=== PATIENT | male | born 1970 | race Caucasian/White ===

== ENCOUNTER 2019-09-05 05:49 | Day surgery (SDC) | payer BC, OTHER ==
[2019-09-02 15:25] VITALS: BMI 26.5
[2019-09-05] MEDS ORDERED: oxyCODONE HCL 10 MG SUSTAINED ACTING TABLET PO STA (06:50)
[2019-09-05] MEDS ORDERED: oxyCODONE HCL 10 MG SUSTAINED ACTING TABLET ONE (06:58)
[2019-09-05] MEDS ORDERED: LIDOCAINE 1%/EPI 1:100000 (20 ML MULTI DOSE VIAL) ONE (07:24)
[2019-09-05] MEDS ORDERED: GUM MASTIC/STORAX/MSAL/ALCOHOL 1 DRP DROPSBTL MC ONE (07:24)
[2019-09-05] MEDS ORDERED: methylPREDNISolone ACET (DEPO) 40 MG/1 ML VIAL ONE (07:24)
--- NOTE | 2019-09-05 07:31 | HP ---
History & Physical Update - History History: No Change - Physical Physical: No Change - Assessment Assessment: No Change - Plan Plan: No Change
[2019-09-05] MEDS ORDERED: DEXAMETHASONE SOD PHOSPHATE/PF 10 MG/ML SDV ONE (07:56)
[2019-09-05] MEDS ORDERED: MIDAZOLAM HCL 2 MG/2 ML SINGLE DOSE VIAL ONE ×2 (07:57→09:18)
[2019-09-05] MEDS ORDERED: BUPIVACAINE HCL/PF 0.5% (5 MG/ML) 30 ML VIAL IJ ONE (07:57)
[2019-09-05] MEDS ORDERED: PROPOFOL 1,000,000 MCG/100 ML VIAL ONE (08:42)
[2019-09-05] MEDS ORDERED: PROPOFOL 20 ML ONE (09:00)
[2019-09-05] MEDS ORDERED: SUCCINYLCHOLINE CHLORIDE 200 MG/10 ML SYRINGE ONE (09:00)
[2019-09-05] MEDS ORDERED: LIDOCAINE 1%/EPI 1:100000 (20 ML MULTI DOSE VIAL) INF ONE (09:15)
[2019-09-05] MEDS ORDERED: ONDANSETRON 4 MG/2 ML VIAL IVPUSH PRN (09:19)
[2019-09-05] MEDS ORDERED: oxyCODONE HCL 5 MG TABLET PO PRN (09:19)
[2019-09-05] MEDS ORDERED: LACTATED RINGERS SOLUTION 1,000 ML IV SCH (09:30)
[2019-09-05] MEDS ORDERED: methylPREDNISolone ACET (DEPO) 40 MG/1 ML VIAL IM ONE (10:17)
[2019-09-05 11:55] VITALS: PULSE 88
[2019-09-05 16:04] VITALS: BP 138/79; TEMP 98
--- NOTE | 2019-09-09 15:55 | OP ---
DATE OF OPERATION: 09/05/2019 PREOPERATIVE DIAGNOSIS: Spinal stenosis L4-5. POSTOPERATIVE DIAGNOSIS: Spinal stenosis L4-5. PROCEDURE PERFORMED: Laminectomy L4-5. SURGEON: Canelo Krishna MD [employer] OPERATOR: DELMER Siddiqi ESTIMATED BLOOD LOSS: 60 mL. INTRAVENOUS FLUIDS: Per anesthesia. ANESTHESIA: Spinal/TLIP block. COMPLICATIONS: None. DISPOSITION: The patient was brought to the PACU in stable condition. INDICATIONS FOR SURGERY: The patient is a 48-year-old gentleman who has been suffering from pain from his back down his right leg. X-rays and MRI were completed, which show that he had spinal stenosis at L4-5. He had gone through all an exhaustive course of treatment forms, which included medications, physical therapy, as well as injections. Unfortunately the pain continued to persist despite all this. At this point, the risks, benefits, and alternatives were discussed and the patient consented to surgery. DESCRIPTION OF PROCEDURE: Patient was brought to the operating room by the anesthesia staff. After appropriate patient identification was performed, spinal anesthesia was given. A TLIP block was also given. Patient was able to position himself prone onto the OR table with all areas of bony prominences were well padded. At this time, 2 needles were placed into his back to alexi off the L4-L5 segments. X-rays were taken to confirm the site. Needle was removed and 10 mL of lidocaine with epinephrine was injected into his back at this time. His back was prepped and draped in the sterile manner. At this point timeout was completed. An incision was made from the top of L4 down to the bottom of L5. Dissection was carried down to the fascia. Fascia was split opened at the time and appropriate retractors were then placed in. A spinal needle was placed onto the L4 lamina. X-ray was taken to confirm this was L4-5. The needle was removed and the intraspinous ligament at L4-5 was removed. The microscope was brought in. A portion of the L4-5 lamina were removed. A portion of the L4-5 was removed. The nerve root was mobilized medially. Disk herniation was noted. It was removed at this time. A portion of the inferior superior facet were removed. By the end of the procedure, the L5 nerve root appeared to be well decompressed. All bleeding was well controlled at this time. Steroid was placed over the nerve root. FloSeal was placed over that. The fascia was closed with a number 1 running Vicryl suture. Subcutaneous tissues were closed with 2-0 Vicryl suture. Skin was closed with 3-0 Monocryl suture. Dermabond was applied. Steri-Strips were applied. Sterile dressing was applied. Patient was placed supine on the bed and brought to the PACU in stable condition. Arnoldo LANG/[id number]
--- NOTE | 2019-09-09 16:17 | PATH ---
Surgical Pathology Report Patient Name: ADAN GOMES [facility]. Rec. #: [id number] /Age/Gender: 1970 (Age: 48) / M Account: [id number] Location: [facility] AM[facility] Taken: 09/05/2019 Received: 09/05/2019 Reported: 09/09/2019 Physicians: Canelo Krishna M.D. Specimen(s) Received L4-5 LUMBAR DISC Clinical History Spinal stenosis and thoracolumbar region Final Diagnosis L4-5, LUMBAR DISC, LAMINECTOMY: CARTILAGE WITH DEGENERATIVE CHANGES. Electronically Signed Ofelia Junior M.D. Gross Description Received in formalin labeled "L4-5 lumbar disc," is a 1.7 x 1.5 x 0.3 cm aggregate of choi fragments of fibrocartilaginous tissue. The specimen is entirely submitted in one cassette. /09/06/2019 saudi09/06/2019
== END 2019-09-05 13:35 | disposition home or self-care (01) ==
LOC: FASU 05:49
PROVIDERS: ATTEND Orthopaedic Surgery Orthopaedic Surgery of the Spine
PROC: 01NB0ZZ Release Lumbar Nerve, Open Approach (ICD-10-PCS; principal; 2019-09-05 09:20)
DX: M48.061 Spinal stenosis, lumbar region without neurogenic claudication (principal)
CPT/HCPCS: 72100-TC-FY; 76000-TC-FY; 82962; 88304-TC; 94760